=== PATIENT | male | born 1945 | race Caucasian/White ===

== ENCOUNTER 2017-08-26 15:40 | Emergency (ER) | payer MEDICARE, SELFPAY ==
[2017-08-26 15:41] VITALS: BP 118/56; PULSE 56; RESP 17; TEMP 37.1; O2SAT 98; BMI 21.6
--- NOTE | 2017-08-26 16:06 | CT_ITS ---
STUDY: CT ABDOMEN AND PELVIS WITHOUT CONTRAST REASON FOR EXAM: Male, 71 years old. Fall. Right-sided rib pain. RADIATION DOSAGE (If Supplied By Facility): CTDIvol = ( 6.04 ) mGy, DLP = ( 282.37 ) mGycm TECHNIQUE: Transaxial images were obtained from the dome of the diaphragm to the symphysis pubis without oral contrast, and without intravenous contrast. Sagittal and coronal images were reconstructed. Individualized dose optimization techniques were used for this CT. COMPARISON: None. FINDINGS: Evaluation of the abdominal viscera is limited in the absence of intravenous contrast. The visualized lung bases are clear. The visualized portions of the heart and pericardium are within normal limits. There are no calcified gallstones present. The liver demonstrates an unremarkable unenhanced appearance. There are calcified granulomata noted in the spleen. The pancreas demonstrates an unremarkable unenhanced appearance. The adrenal glands are within normal limits. There are no obstructing renal stones. There is no hydronephrosis. There are simple cysts noted in the kidneys. Normal visualized stomach. There is no bowel obstruction or inflammation. There is a large amount of stool in the colon, consistent with constipation. The appendix is visualized and appears normal. The aorta is normal in caliber. There is no abdominal or pelvic free air, free fluid, fluid collection or lymphadenopathy. There are degenerative changes noted in the spine. There is a nondisplaced fracture of the right transverse process of L1 (image 58 series 2). The remainder of the visualized osseous structures are intact. CT/Abdomen/Pelvis without Cont IMPRESSION: Nondisplaced fracture of the right transverse process of L1. No additional acute traumatic findings demonstrated on this noncontrast CT of the abdomen and pelvis. Constipation. Electronically Signed: [place], at 17:06 EDT Tel , Service support ,
--- NOTE | 2017-08-26 16:22 | ED.DCSUM_ITS ---
- ER Visit Summary Date of Service: 08/26/17 Chief Complaint: Right trunk injury History of Present Illness: The patient is a 71 M with a history of Parkinson's disease. Patient states he lost his balance and fell backwards in the bathroom , hitting his right ribs and abdomen on the bathtub. Injury occurred 3 days ago on the . Patient states yesterday he felt pretty good but today has increased pain again. Pain is worse with movement or palpation. He denies striking his head. He has had no headache and no neck pain. Patient does have a history of A. fib as well as pulmonary embolism. He is currently on Xarelto. Physical Examination: Vital signs are unremarkable. Patient sitting upright in bed no acute distress. Head and neck examination was no external sign of trauma. No C-spine tenderness on exam. Heart is irregular. Lung sounds are clear. Abdomen is soft with no anterior tenderness. Patient does have reproducible tenderness of the right flank region and the lateral/posterior lower ribs. He has an area of ecchymosis noted on the waistline only. Neuro exam is significant for Parkinson's tremor but no focal deficits appreciated. Test Results: CT scan of the flank was obtained and reveals a nondisplaced fracture the transverse process of L1. No additional traumatic findings are noted. Emergency Department Course and Treatment: Patient was given 1 tab of [place] here. On repeat evaluation he does feel much improved. He will be given a very short course of [place] for home. Treatment Plan: [] Disposition: Discharge Impression: 1. Mechanical fall 2. L1 transverse process fracture This note was generated with [employer] dictation software. It may contain incorrect words, spelling, and punctuation that were not noted in review of the chart prior to signing ED Disposition - Plan for ED Patient: Chief Complaint: Fall Referrals: [facility] Doctor,Out of [Primary Care Provider] -
[2017-08-26] MEDS: HYDROcodone Bitartrate/Apap 5/325 Tablet PO ×2 (16:24→17:47)
[2017-08-26 16:25] VITALS: O2SAT 96
--- NOTE | 2017-08-26 17:32 | ED.DEP ---
ED Disposition - Plan for ED Patient: Disposition: Home or Assisted Living Chief Complaint: Fall Instructions: ED Mechanical Fall, ED Fx Transverse Process Prescriptions: Hydrocodone Bitart/Apap 5-325 [[place] 5MG-325MG] 1 tablet PO Q12H PRN PRN 5 Days #10 tablet PRN Reason: Pain Referrals: [facility],Out of [Primary Care Provider] - 1 Week
--- NOTE | 2017-08-26 17:35 | DCINST.ED_ITS ---
ED Disposition - Plan for ED Patient: Disposition: Home or Assisted Living Chief Complaint: Fall Instructions: ED Mechanical Fall, ED Fx Transverse Process Prescriptions: Hydrocodone Bitart/Apap 5-325 [[place] 5MG-325MG] 1 tablet PO Q12H PRN PRN 5 Days #10 tablet PRN Reason: Pain Referrals: [facility],Out of [Primary Care Provider] - 1 Week
--- NOTE | 2017-08-26 17:42 | NURSING ---
NO LW OR POA
[2017-08-26 17:46] VITALS: BP 146/76; PULSE 98; RESP 16
== END 2017-08-26 17:47 | disposition home or self-care (01) ==
PROVIDERS: Emergency Provider Emergency Medicine
DX: S32.018A Other fracture of first lumbar vertebra, initial encounter for closed fracture (principal); I25.10 Atherosclerotic heart disease of native coronary artery without angina pectoris; I50.9 Heart failure, unspecified; I48.91 Unspecified atrial fibrillation; G20 Parkinson's disease; Z86.711 Personal history of pulmonary embolism; Z87.891 Personal history of nicotine dependence; Z79.82 Long term (current) use of aspirin; Z79.899 Other long term (current) drug therapy; W18.30XA Fall on same level, unspecified, initial encounter; Y93.89 Activity, other specified; Y92.002 Bathroom of unspecified non-institutional (private) residence as the place of occurrence of the external cause; Y99.8 Other external cause status
CPT/HCPCS: 74176; 99283